=== PATIENT | female | born 1965 | race Caucasian/White ===

== ENCOUNTER 2017-07-12 04:18 | Emergency (ER) | payer BC ==
[~2017-07-12] VITALS: Ht 172.7 cm; Wt 63.5 kg
[2017-07-12 04:27] VITALS: BP 135/89
== END 2017-07-12 05:17 | disposition home or self-care (01) ==
LOC: ER 04:20
DX: J02.8 Acute pharyngitis due to other specified organisms (principal); Z88.1 Allergy status to other antibiotic agents
CPT/HCPCS: 87070; 87880; 99283; A4606; Z7610; 86403-TC